=== PATIENT | female | born 1950 | race Caucasian/White ===

== ENCOUNTER 2016-09-21 21:24 | Observation (INO) | payer MEDICARE, OTHER ==
--- NOTE | 2016-09-21 21:38 | EDM.PDOC ---
ED HPI GENERAL MEDICAL PROBLEM - General Chief Complaint: Headache Stated Complaint: Headache Time Seen by Provider: 09/21/16 21:38 Source of Information: Reports: Patient, RN, RN Notes Reviewed History Limitations: Reports: No Limitations - History of Present Illness INITIAL COMMENTS - FREE TEXT/NARRATIVE: Patient presents to the ED at [facility] complaining of a headache that started earlier this AM. No known triggers. Patient states the headache is on the right side of her head. She states it is sharp and stabbing in a wave-like pattern. Patient did take an Excederin this AM without any relief. She did take an Imitrex around 8pm which did not help at all. Patient denies any focal neurological deficits. She feels moderately nauseated. No vomiting. No chest pain. No SOB. She states she did not eat her evening meal. Patient states she only get a headache maybe once a year. She does not normally taken any medications for headaches. Onset: Today Onset Date: 09/21/16 Duration: Getting Worse, Waxing/Waning Location: Reports: Head Quality: Reports: Sharp, Stabbing Severity: Moderate Improves with: Reports: None Worsens with: Reports: Movement Context: Denies: Activity, Exercise, Lifting, Sick Contact, Trauma Associated Symptoms: Reports: Nausea/Vomiting Right Headache Pain Score (Numeric/FACES): 10 - Related Data Allergies Allergy/AdvReac Type Severity Reaction Status Date / Time Sulfa (Sulfonamide Allergy Hives Verified 09/21/16 21:37 Antibiotics) Home Meds: Home Meds Acetaminophen [Tylenol Extra Strength] 1,000 mg PO Q4H PRN 02/08/15 [History] Aspirin [Halfprin] 1 tab PO DAILY 02/08/15 [History] Cholecalciferol (Vitamin D3) [Vitamin D3] 1 tab PO BID 02/08/15 [History] Fludrocortisone [Florinef] 1 tab PO DAILY 02/08/15 [History] Levothyroxine [Synthroid] 88 mcg PO DAILY 02/08/15 [History] predniSONE 1 tab PO DAILY 02/08/15 [History] Past Medical History HEENT History: Reports: Impaired Vision Gastrointestinal History: Reports: Other (See Below) Other Gastrointestinal History: + FIT Musculoskeletal History: Reports: Back Pain, Chronic Neurological History: Reports: Migraines Endocrine/Metabolic History: Reports: Hypothyroidism, Osteopenia, Other (See Below) Other Endocrine/Metabolic History: corticoadrenal insufficiency Social & Family History - Tobacco Use Smoking Status *Q: Unknown Ever Smoked Second Hand Smoke Exposure: Yes - Recreational Drug Use Recreational Drug Use: No ED ROS GENERAL - Review of Systems Review Of Systems: See Below Constitutional: Reports: Decreased Appetite. Denies: Fever, Chills, Weakness Respiratory: Denies: Shortness of Breath, Cough Cardiovascular: Denies: Chest Pain, Palpitations GI/Abdominal: Reports: Nausea. Denies: Abdominal Pain, Diarrhea, Vomiting Skin: Reports: No Symptoms Neurological: Reports: Headache. Denies: Numbness, Paresthesia, Tingling, Weakness - Physical Exam Exam: See Below Exam Limited By: No Limitations General Appearance: Alert, WD/WN, Mild Distress Eye Exam: Bilateral Eye: EOMI, Normal Inspection, PERRL Ears: Normal External Exam, Normal Canal, Normal TMs Head Exam: Atraumatic, Normocephalic Neck: Supple, Non-Tender Respiratory/Chest: No Respiratory Distress, Lungs Clear, Normal Breath Sounds Cardiovascular: Regular Rate, Rhythm GI/Abdominal: Normal Bowel Sounds, Soft, Non-Tender Neuro Exam (Abbreviated): Alert, Oriented, Normal Cognition Skin Exam: Warm, Dry, Intact, Normal Color, No Rash Course - Vital Signs Last Recorded V/S: Last Vital Signs Temp 36.6 C 09/21/16 21:30 Pulse 108 H 09/21/16 23:43 Resp 18 09/21/16 23:43 BP 113/87 09/21/16 23:43 Pulse Ox 95 09/21/16 23:43 - Orders/Labs/Meds Orders: Active Orders 24 hr Category Date Time Status Head wo Cont [CT] Stat Exams 09/21/16 23:14 Taken Sodium Chloride 0.9% [Saline Flush] Med 09/21/16 21:43 Active 10 ml FLUSH ASDIRECTED PRN Peripheral IV Insertion Adult [OM.PC] Routine Oth 09/21/16 21:43 Ordered Medication Orders Sodium Chloride (Saline Flush) 10 ml FLUSH ASDIRECTED PRN PRN Reason: Keep Vein Open Meds: Medications Generic Name Dose Route Start Last Admin Trade Name Freq PRN Reason Stop Dose Admin Sodium Chloride 10 ml 09/21/16 21:43 Saline Flush FLUSH ASDIRECTED PRN Keep Vein Open Discontinued Medications Generic Name Dose Route Start Last Admin Trade Name Jonnathan PRN Reason Stop Dose Admin Dexamethasone 10 mg 09/21/16 23:07 09/21/16 23:37 Dexamethasone IVPUSH 09/21/16 23:08 10 mg ONETIME ONE Administration Diphenhydramine HCl 50 mg 09/21/16 21:46 09/21/16 21:59 Benadryl IVPUSH 09/21/16 21:47 50 mg ONETIME ONE Administration Sodium Chloride 1,000 mls @ 999 mls/hr 09/21/16 21:49 09/21/16 21:55 Normal Saline IV 09/21/16 22:49 999 mls/hr ONETIME ONE Administration Chlorpromazine HCl 25 mg/ 51 mls @ 100 mls/hr 09/21/16 22:19 09/21/16 22:28 Sodium Chloride IV 09/21/16 22:49 100 mls/hr ONETIME ONE Administration Promethazine HCl 25 mg/ Sodium 101 mls @ 400 mls/hr 09/21/16 23:06 09/21/16 23:15 Chloride IV 09/21/16 23:21 400 mls/hr ONETIME ONE Administration Ketorolac Tromethamine 30 mg 09/21/16 21:43 09/21/16 22:00 Toradol IM 09/21/16 21:44 30 mg ONETIME ONE Administration Ondansetron HCl 4 mg 09/21/16 21:45 09/21/16 21:58 Zofran IVPUSH 09/21/16 21:46 4 mg ONETIME ONE Administration - Radiology Interpretation Free Text/Narrative:: CT Head: No acute intracranial findings See scanned report in EMR CT Results Date: 09/22/16 CT Results Time: 00:33 Departure - Departure Time of Disposition: 00:46 Disposition: Refer to Observation Condition: Good Clinical Impression: Headache, cluster, intractable, Dizziness and giddiness - Discharge Information ED Communication - ED Communication Date/Time Date: 09/21/16 Time Called: 22:59 - Discussed Case With (1) Discussed Case With (1): Outpatient Provider (Dr. Olmos, ED provider [facility]) - Conversation Summary Summary Comment: Case discussed with Dr. Olmos. Recommend trying Phenergan , Decadron, or Depacon (Depakote). May also try Reglan. - Problem List & Annotations (1) Headache, cluster, intractable SNOMED Code(s): 920631295 Code(s): G44.001 - CLUSTER HEADACHE SYNDROME, UNSPECIFIED, INTRACTABLE Status: Acute Priority: High Current Visit: Yes Onset Date: ~09/21/16 (2) Dizziness and giddiness SNOMED Code(s): 501016070 Code(s): R42 - DIZZINESS AND GIDDINESS Status: Acute Priority: Medium Current Visit: Yes Onset Date: ~09/21/16 - Problem List Review Problem List Initiated/Reviewed/Updated: Yes - My Orders Last 24 Hours: My Active Orders 09/21/16 21:43 Sodium Chloride 0.9% [Saline Flush] 10 ml FLUSH ASDIRECTED PRN Peripheral IV Insertion Adult [OM.PC] Routine 09/21/16 23:14 Head wo Cont [CT] Stat - Assessment/Plan Admission H&P: Please use this note as an admission H&P Last 24 Hours: My Active Orders 09/21/16 21:43 Sodium Chloride 0.9% [Saline Flush] 10 ml FLUSH ASDIRECTED PRN Peripheral IV Insertion Adult [OM.PC] Routine 09/21/16 23:14 Head wo Cont [CT] Stat Plan: Admit obs for overnight. IVF. Observe headache. Patient does not want to go to [place] for further testing/eval.
[2016-09-21] MEDS ORDERED: Sodium Chloride 0.9% 10 ML Syringe FLUSH PRN (21:43)
[2016-09-21] MEDS ORDERED: Ketorolac 30 MG/ML SDV IM ONE (21:43)
[2016-09-21] MEDS ORDERED: Ondansetron 4 MG/2 ML SDV IVPUSH ONE (21:45)
[2016-09-21] MEDS ORDERED: diphenhydrAMINE 50 MG/ML SDV IVPUSH ONE (21:46)
[2016-09-21] MEDS ORDERED: Sodium Chloride 0.9% 1,000 ML IV ONE (21:49)
[2016-09-21] MEDS ORDERED: Promethazine 25 MG in Sodium Chloride 0.9% 100 ML IV ONE (23:06)
[2016-09-21] MEDS ORDERED: Dexamethasone 4 MG/ML SDV IVPUSH ONE (23:07)
--- NOTE | 2016-09-22 01:06 | PCM.HP ---
H&P History of Present Illness - General Date of Service: 09/22/16 Admit Problem/Dx: Admission Diagnosis/Problem Admission Diagnosis/Problem Headache Source of Information: Patient, Family, RN, RN Notes Reviewed History Limitations: Reports: No Limitations - History of Present Illness Initial Comments - Free Text/Narative: Patient presented to the ED at [facility] complaining of a headache that started earlier this AM. No known triggers. Patient states the headache is on the right side of her head. She states it is sharp and stabbing in a wave-like pattern. Patient did take an Excederin this AM without any relief. She did take an Imitrex around 8pm which did not help at all. Patient denies any focal neurological deficits. She feels moderately nauseated. No vomiting. No chest pain. No SOB. She states she did not eat her evening meal. CT scan of head is negative for any acute pathology. Patient states she only get a headache maybe once a year. She does not normally taken any medications for headaches. During ER stay, patient did become very giddy, confused and restless, probably side effect of the medications she was given in the ED. Right Headache Pain Score (Numeric/FACES): 10 - Related Data Allergies/Adverse Reactions: Allergies Allergy/AdvReac Type Severity Reaction Status Date / Time Sulfa (Sulfonamide Allergy Hives Verified 09/21/16 21:37 Antibiotics) Home Medications: Home Meds Acetaminophen [Tylenol Extra Strength] 1,000 mg PO Q4H PRN 02/08/15 [History] Aspirin [Halfprin] 1 tab PO DAILY 02/08/15 [History] Cholecalciferol (Vitamin D3) [Vitamin D3] 1 tab PO BID 02/08/15 [History] Fludrocortisone [Florinef] 1 tab PO DAILY 02/08/15 [History] Levothyroxine [Synthroid] 88 mcg PO DAILY 02/08/15 [History] predniSONE 1 tab PO DAILY 02/08/15 [History] Past Medical History HEENT History: Reports: Impaired Vision Gastrointestinal History: Reports: Other (See Below) Other Gastrointestinal History: + FIT Musculoskeletal History: Reports: Back Pain, Chronic Neurological History: Reports: Migraines Endocrine/Metabolic History: Reports: Hypothyroidism, Osteopenia, Other (See Below) Other Endocrine/Metabolic History: corticoadrenal insufficiency Social & Family History - Family History Family Medical History: Noncontributory - Tobacco Use Smoking Status *Q: Never Smoker Used Tobacco, but Quit: No Second Hand Smoke Exposure: Yes - Tobacco Core Measures Tobacco Use/Smoking Within Last 30 Days: No Smokeless Tobacco Use in Last 30 Days: No - Recreational Drug Use Recreational Drug Use: No H&P Review of Systems - Review of Systems: Review Of Systems: See Below General: Reports: Weakness. Denies: Fever, Chills Pulmonary: Denies: Shortness of Breath, Cough Cardiovascular: Denies: Chest Pain, Palpitations Gastrointestinal: Reports: Nausea. Denies: Abdominal Pain, Diarrhea, Vomiting Skin: Reports: No Symptoms Neurological: Reports: Confusion, Dizziness, Headache, Trouble Speaking. Denies : Numbness, Paresthesia, Tingling Exam - Exam Exam: See Below - Vital Signs Vital Signs: Last Vital Signs Temp 36.6 C 09/21/16 21:30 Pulse 108 H 09/21/16 23:43 Resp 18 09/21/16 23:43 BP 113/87 09/21/16 23:43 Pulse Ox 95 09/21/16 23:43 Weight: 98.883 kg - Exam General: Lethargic HEENT: Conjunctiva Clear, PERRLA Lungs: Clear to Auscultation, Normal Respiratory Effort Cardiovascular: Regular Rhythm GI/Abdominal Exam: Normal Bowel Sounds, Soft, Non-Tender Peripheral Pulses: 2+: Radial (L), Radial (R) Skin: Warm, Dry, Intact Neuro Extensive - Mental Status: Disorientation to Place, Disorientation to Time , Inattentive, Opens Eyes to Commands, Slow Response to Commands *Q Meaningful Use (ADM) - VTE *Q VTE Criteria *Q: No indication for VTE prophylaxis - Early ambulation - Stroke *Q Stroke Criteria *Q: - AMI *Q AMI Criteria *Q: - Problem List (1) Headache, cluster, intractable SNOMED Code(s): 572471380 ICD Code: G44.001 - CLUSTER HEADACHE SYNDROME, UNSPECIFIED, INTRACTABLE Status: Acute Priority: High Current Visit: Yes Onset Date: ~09/21/16 (2) Dizziness and giddiness SNOMED Code(s): 092722566 ICD Code: R42 - DIZZINESS AND GIDDINESS Status: Acute Priority: Medium Current Visit: Yes Onset Date: ~09/21/16 Problem List Initiated/Reviewed/Updated: Yes Orders Last 24hrs: Medication Orders Sodium Chloride (Saline Flush) 10 ml FLUSH ASDIRECTED PRN PRN Reason: Keep Vein Open Assessment/Plan Comment:: 1. Admit observation 2. IVF for hydration 3. Observe headaches 4. Neuro checks Q4H 5. Regular diet as tolerated 6. Continue home medications 7. Code 1 8. Patient does not want to be transferred to a higher level of care if needed 9. DVT prophylaxis - early ambulation
[2016-09-22] MEDS ORDERED: Acetaminophen 500 MG Tab PO PRN (01:15)
[2016-09-22] MEDS ORDERED: Sodium Chloride 0.9% 1,000 ML IV SCH (01:30)
[2016-09-22] MEDS ORDERED: Morphine 2 MG/ML Syringe IV ONE (05:01)
[2016-09-22 07:14] LABS: CHLORIDE,CL 105 mmol/L (98-107); SODIUM,NA 138 mmol/L (136-145)
[2016-09-22] MEDS ORDERED: Fludrocortisone 0.1 MG Tab PO SCH (08:00)
[2016-09-22] MEDS ORDERED: predniSONE 5 MG Tab PO SCH (08:00)
[2016-09-22] MEDS ORDERED: Non-Formulary Medication 1 Each (Cholecalciferol (Vitamin D3) [Vitamin D3] 1 TAB) PO SCH (08:00)
[2016-09-22] MEDS ORDERED: Levothyroxine 88 MCG Tab PO SCH (08:00)
[2016-09-22] MEDS ORDERED: Aspirin 81 MG Tab.EC PO SCH (08:00)
[2016-09-22] MEDS ORDERED: Cholecalciferol (Vitamin D3) 1,000 Unit Tab PO SCH (10:22)
[2016-09-22] MEDS ORDERED: Ketorolac 15 MG/ML SDV IVPUSH ONE (10:45)
[2016-09-22] MEDS ORDERED: Ondansetron 4 MG/2 ML SDV IVPUSH ONE (10:46)
[2016-09-22 14:05] VITALS: BP 120/51
--- NOTE | 2016-09-22 14:14 | PCM.DCSUM1 ---
Discharge Summary - Hospital Course HPI Initial Comments: Patient presented to the ED at [facility] complaining of a headache that started yesterday morning. No known triggers. Patient states the headache is on the right side of her head. She states it is sharp and stabbing in a wave-like pattern. Patient did take an Excederin yesterday without any relief. She did take an Imitrex around 8pm last night which did not help at all. Patient denies any focal neurological deficits. She feels moderately nauseated. No vomiting. No chest pain. No SOB. She states she did not eat her evening meal. CT scan of head is negative for any acute pathology. Patient states she only get a headache maybe once a year. She does not normally taken any medications for headaches. During ER stay, patient did become very giddy, confused and restless, probably side effect of the medications she was given in the ED. - Discharge Data Discharge Date: 09/22/16 Discharge Disposition: Home, Self-Care 01 Condition: Good - Discharge Diagnosis/Problem(s) (1) Headache, cluster, intractable SNOMED Code(s): 315939466 ICD Code: G44.001 - CLUSTER HEADACHE SYNDROME, UNSPECIFIED, INTRACTABLE Status: Acute Priority: High Current Visit: Yes Onset Date: ~09/21/16 (2) Dizziness and giddiness SNOMED Code(s): 816328695 ICD Code: R42 - DIZZINESS AND GIDDINESS Status: Acute Priority: Medium Current Visit: Yes Onset Date: ~09/21/16 - Patient Summary/Data Operative Procedure(s) Performed: None Labs Pending at D/C: None Hospital Course: Patient did well during her stay. Her headache had resolved earlier this AM. She did sleep well overnight and feels good today. She had been tolerating her diet. Urinating ok. No issues with BM's. Pain has stayed well controlled. Afebrile. Patient remained hemodynamically stable. - Patient Instructions Diet: Heart Healthy Diet Activity: As Tolerated, Rest and Relax Today Driving: Do Not Drive Showering/Bathing: May Shower Notify Provider of: Fever, Increased Pain, Nausea and/or Vomiting - Discharge Plan Home Medications: Home Meds Acetaminophen [Tylenol Extra Strength] 1,000 mg PO Q4H PRN 02/08/15 [History] Aspirin [Halfprin] 1 tab PO DAILY 02/08/15 [History] Cholecalciferol (Vitamin D3) [Vitamin D3] 1 tab PO BID 02/08/15 [History] Fludrocortisone [Florinef] 1 tab PO DAILY 02/08/15 [History] Levothyroxine [Synthroid] 88 mcg PO DAILY 02/08/15 [History] predniSONE 1 tab PO DAILY 02/08/15 [History] Patient Handouts: Cluster Headache Referrals: Mariel May PA-C [Primary Care Provider] - - Discharge Summary/Plan Comment DC Time >30 min.: Yes - General Info Date of Service: 09/22/16 Admission Dx/Problem (Free Text: Admission Diagnosis/Problem Admission Diagnosis/Problem Headache Functional Status: Reports: Pain Controlled, Tolerating Diet, Ambulating, Urinating - Review of Systems General: Denies: Fever, Weakness, Fatigue Pulmonary: Denies: Shortness of Breath, Sputum Cardiovascular: Denies: Chest Pain, Palpitations Gastrointestinal: Denies: Abdominal Pain, Nausea, Vomiting Skin: Reports: No Symptoms Neurological: Denies: Dizziness, Headache, Numbness, Paresthesia, Tingling - Patient Data Vitals - Most Recent: Last Vital Signs Temp 36.6 C 09/22/16 14:00 Pulse 75 09/22/16 14:00 Resp 16 09/22/16 14:00 BP 120/51 L 09/22/16 14:00 Pulse Ox 93 L 09/22/16 14:00 Weight - Most Recent: 98.883 kg I&O - Last 24 hours: Intake & Output 09/21/16 09/22/16 09/22/16 22:59 06:59 14:59 Intake Total 240 Output Total 400 300 Balance -400 -60 Lab Results - Last 24 hrs: Laboratory Results - last 24 hr 09/22/16 09/22/16 Range/Units 06:11 06:11 WBC 5.6 (4.0-10.0) x10^3/uL RBC 4.75 (4.00-5.50) x10^6/uL Hgb 14.3 (12.0-16.0) g/dL Hct 42.5 (33.0-47.0) % MCV 89.5 (78.0-93.0) fL MCH 30.1 (26.0-32.0) pg MCHC 33.6 (32.0-36.0) g/dL RDW Coeff of Olive 13.5 (10.0-15.0) % Plt Count 171 (130-400) x10^3/uL Neut % (Auto) 88.3 H (50.0-80.0) % Lymph % (Auto) 10.6 L (25.0-50.0) % Sequoyah % (Auto) 0.9 L (2.0-11.0) % Eos % (Auto) 0.0 (0.0-4.0) % Baso % (Auto) 0.2 (0.2-1.2) % ESR 16 (0-21) mm/hr Sodium 138 (136-145) mmol/L Potassium 4.0 (3.5-5.1) mmol/L Chloride 105 (98-107) mmol/L Carbon Dioxide 26 (21-32) mmol/L BUN 11 (7-18) mg/dL Creatinine 0.9 (0.55-1.02) mg/dL Est Cr Clr Drug Dosing 62.03 mL/min Estimated GFR (MDRD) > 60 Glucose 189 H (74-106) mg/dL Calcium 8.9 (8.5-10.1) mg/dL C-Reactive Protein 0.9 (<=0.9) mg/dL TSH, Ultra Sensitive 2.584 (0.358-3.74) uIU/mL Med Orders - Current: Current Medications Acetaminophen (Tylenol Extra Strength) 1,000 mg PO Q4H PRN PRN Reason: Pain Last Admin: 09/22/16 07:55 Dose: 1,000 mg Aspirin (Halfprin) 81 mg PO DAILY [facility] Last Admin: 09/22/16 07:55 Dose: 81 mg Cholecalciferol (Vitamin D3) 1,000 units PO BID [facility] Fludrocortisone Acetate (Florinef) 0.1 mg PO DAILY [facility] Last Admin: 09/22/16 07:55 Dose: 0.1 mg Sodium Chloride (Normal Saline) 1,000 mls @ 125 mls/hr IV ASDIRECTED [facility] Levothyroxine Sodium (Synthroid) 88 mcg PO DAILY [facility] Last Admin: 09/22/16 07:55 Dose: 88 mcg Prednisone (Prednisone) 5 mg PO DAILY [facility] Last Admin: 09/22/16 07:54 Dose: 5 mg Sodium Chloride (Saline Flush) 10 ml FLUSH ASDIRECTED PRN PRN Reason: Keep Vein Open Last Admin: 09/22/16 07:57 Dose: 10 ml Discontinued Medications Dexamethasone (Dexamethasone) 10 mg IVPUSH ONETIME ONE Stop: 09/21/16 23:08 Last Admin: 09/21/16 23:37 Dose: 10 mg Diphenhydramine HCl (Benadryl) 50 mg IVPUSH ONETIME ONE Stop: 09/21/16 21:47 Last Admin: 09/21/16 21:59 Dose: 50 mg Sodium Chloride (Normal Saline) 1,000 mls @ 999 mls/hr IV ONETIME ONE Stop: 09/21/16 22:49 Last Admin: 09/21/16 21:55 Dose: 999 mls/hr Chlorpromazine HCl 25 mg/ (Sodium Chloride) 51 mls @ 100 mls/hr IV ONETIME ONE Stop: 09/21/16 22:49 Last Admin: 09/21/16 22:28 Dose: 100 mls/hr Promethazine HCl 25 mg/ Sodium (Chloride) 101 mls @ 400 mls/hr IV ONETIME ONE Stop: 09/21/16 23:21 Last Admin: 09/21/16 23:15 Dose: 400 mls/hr Ketorolac Tromethamine (Toradol) 30 mg IM ONETIME ONE Stop: 09/21/16 21:44 Last Admin: 09/21/16 22:00 Dose: 30 mg Ketorolac Tromethamine (Toradol) 15 mg IVPUSH ONETIME ONE Stop: 09/22/16 10:46 Last Admin: 09/22/16 11:31 Dose: 15 mg Morphine Sulfate (Morphine) 2 mg IV ONETIME ONE Stop: 09/22/16 05:02 Last Admin: 09/22/16 05:10 Dose: 2 mg Non-Formulary Medication (Cholecalciferol (Vitamin D3) [Vitamin D3]) 1 tab PO BID [facility] Last Admin: 09/22/16 08:01 Dose: 1 tab Ondansetron HCl (Zofran) 4 mg IVPUSH ONETIME ONE Stop: 09/21/16 21:46 Last Admin: 09/21/16 21:58 Dose: 4 mg Ondansetron HCl (Zofran) 4 mg IVPUSH ONETIME ONE Stop: 09/22/16 10:47 Last Admin: 09/22/16 11:30 Dose: 4 mg - Exam General: Reports: Alert, Oriented HEENT: Reports: Pupils Equal, Pupils Reactive, EOMI Neck: Reports: Supple Lungs: Reports: Clear to Auscultation, Normal Respiratory Effort Cardiovascular: Reports: Regular Rate, Regular Rhythm GI/Abdominal Exam: Normal Bowel Sounds, Soft, Non-Tender Skin: Reports: Warm, Dry Neurological: Reports: No New Focal Deficit *Q Meaningful Use (DIS) - VTE *Q VTE Criteria *Q: No risk for VTE - Patient is ambulating - Stroke *Q Stroke Criteria *Q: - AMI *Q AMI Criteria *Q:
[2016-09-22] MEDS ORDERED: SUMAtriptan 6 MG/0.5 ML SDV SUBCUT ONE (14:22)
== END 2016-09-22 14:47 | disposition home or self-care (01) ==
LOC: VM.ED 21:24 → VM.MS 09-22 00:49
PROVIDERS: ADMIT Nurse Practitioner Family; ATTEND Nurse Practitioner Family
DX: G44.001 Cluster headache syndrome, unspecified, intractable (principal); R42 Dizziness and giddiness; E03.9 Hypothyroidism, unspecified; Z79.82 Long term (current) use of aspirin; Z79.899 Other long term (current) drug therapy; Z88.2 Allergy status to sulfonamides
CPT/HCPCS: 36415; 70450; 80048; 84443; 85025; 85652; 86140; 96361; 96365; 96372; 96375; 99284; A9270; J1100; J1200; J1885; J2270; J2405; J2550; J3030; J3230; J7030; J7050; 96376; 99236; G0378

== ENCOUNTER 2016-11-26 11:05 | Emergency (ER) | payer MEDICARE, OTHER ==
[2016-11-26] MEDS ORDERED: Sodium Chloride 0.9% 1,000 ML IV ONE ×4 (11:22→14:23)
[2016-11-26] MEDS ORDERED: Ondansetron 4 MG/2 ML SDV IVPUSH ONE (11:22)
[2016-11-26] MEDS ORDERED: Sodium Chloride 0.9% 10 ML Syringe FLUSH PRN ×2 (11:24→11:30)
[2016-11-26] MEDS ORDERED: Hydrocortisone Sodium Succinate 100 MG/2 ML SDV IVPUSH ONE ×2 (11:28→14:26)
[2016-11-26] MEDS ORDERED: Albuterol/Ipratropium 3.0-0.5 MG/3 ML Neb Soln NEB ONE (11:28)
[2016-11-26] MEDS ORDERED: Piperacillin/Tazobactam 4.5 GM in Sodium Chloride 0.9% 100 ML IV ONE (11:29)
[2016-11-26] MEDS ORDERED: Albuterol/Ipratropium 3.0-0.5 MG/3 ML Neb Soln ONE (11:39)
[2016-11-26 12:27] LABS: CHLORIDE,CL 104 mmol/L (98-107); SODIUM,NA 139 mmol/L (136-145)
[2016-11-26] MEDS ORDERED: Ciprofloxacin in D5W 400 MG in Premix Bag 1 BAG IV ONE ×2 (12:31)
[2016-11-26] MEDS ORDERED: Acetaminophen 500 MG Tab PO ONE (12:32)
--- NOTE | 2016-11-26 13:24 | EDM.PDOC ---
ED HPI GENERAL MEDICAL PROBLEM - General Chief Complaint: Fever Stated Complaint: decreased loc, weakness, n/v/d Time Seen by Provider: 11/26/16 12:26 Source of Information: Reports: Family History Limitations: Reports: No Limitations - History of Present Illness INITIAL COMMENTS - FREE TEXT/NARRATIVE: Family states that the pt. has been experiencing nausea/vomiting and diarrhea since yesterday. Family states that she has been experiencing increased weakness , fatigue, and confusion. Family transported her to the ER via private vehicle today with severe weakness and minimal responsiveness. She was incontinent of stool and urine. Pt., again, is quite confused and is unable to relate how many episodes of diarrhea and vomiting she has experienced. She states she is not experiencing any chest pain, but is mildly dyspneic. She has had a mild cough as well. She states that her urine is very dark and concentrated. Pt. works here at [employer] and has a known history of Jl's disease, and takes prednisone and fludrocortisone. Onset Date: 11/25/16 Duration: Day(s): (symptoms started gradually during day yesterday) Location: Reports: Generalized Severity: Severe Associated Symptoms: Reports: Confusion, Cough, Malaise, Nausea/Vomiting, Weakness - Related Data Allergies Allergy/AdvReac Type Severity Reaction Status Date / Time Sulfa (Sulfonamide Allergy Hives Verified 11/26/16 11:49 Antibiotics) Home Meds: Home Meds Acetaminophen [Tylenol Extra Strength] 1,000 mg PO Q4H PRN 02/08/15 [History] Aspirin [Halfprin] 1 tab PO DAILY 02/08/15 [History] Cholecalciferol (Vitamin D3) [Vitamin D3] 1 tab PO BID 02/08/15 [History] Fludrocortisone [Florinef] 1 tab PO DAILY 02/08/15 [History] Levothyroxine [Synthroid] 88 mcg PO DAILY 02/08/15 [History] predniSONE 1 tab PO DAILY 02/08/15 [History] Past Medical History HEENT History: Reports: Impaired Vision Gastrointestinal History: Reports: Other (See Below) Other Gastrointestinal History: + FIT Musculoskeletal History: Reports: Back Pain, Chronic Neurological History: Reports: Migraines Endocrine/Metabolic History: Reports: Hypothyroidism, Osteopenia, Other (See Below) Other Endocrine/Metabolic History: corticoadrenal insufficiency Social & Family History - Family History Family Medical History: Noncontributory - Tobacco Use Smoking Status *Q: Never Smoker Used Tobacco, but Quit: No Second Hand Smoke Exposure: Yes - Recreational Drug Use Recreational Drug Use: No ED ROS GENERAL - Review of Systems Review Of Systems: See Below Constitutional: Reports: Fever, Chills, Malaise, Weakness, Fatigue, Decreased Appetite HEENT: Reports: No Symptoms Respiratory: Reports: Shortness of Breath, Cough Cardiovascular: Reports: No Symptoms Endocrine: Reports: Fatigue (History of [place] disease-on fludrocortisone and prednisone), Other GI/Abdominal: Reports: Diarrhea, Nausea, Vomiting : Reports: Incontinence, Pain Musculoskeletal: Reports: No Symptoms Skin: Reports: No Symptoms Neurological: Reports: Confusion, Difficulty Walking, Weakness Psychiatric: Reports: No Symptoms Immunologic: Reports: No Symptoms ED EXAM, SEPSIS - Physical Exam Exam: See Below Exam Limited By: Altered Mental Status General Appearance: Lethargic Eye Exam: Bilateral Eye: EOMI, Normal Fundi, Normal Inspection, PERRL Ears: Normal External Exam, Normal Canal, Hearing Grossly Normal Nose: Normal Inspection, Normal Mucosa Throat/Mouth: Normal Inspection, Normal Teeth, No Airway Compromise, Other ( oral mucosa very dry) Head: Atraumatic, Normocephalic Neck: Normal Inspection, Supple, Non-Tender, Full Range of Motion Respiratory/Chest: Crackles, Wheezing, Prolonged Expiration Cardiovascular: Normal Peripheral Pulses, No Edema, Tachycardia GI/Abdominal Exam: Soft, Non-Tender, No Organomegaly, No Distention, No Abnormal Bruit, No Mass Back: Normal Inspection, Full Range of Motion Extremities: Normal Inspection, Normal Range of Motion, Non-Tender, Pallor Neurological: Confused, Slow to Respond Psychiatric: Normal Affect, Flat Affect Skin: Cool (no petechiae), Pallor EKG INTERPRETATION EKG Date: 11/26/16 Rhythm: NSR [place]: Normal P-Wave: Present QRS: Normal ST-T: Normal QT: Normal Comparison: NA - No Prior EKG Course - Vital Signs Last Recorded V/S: Last Vital Signs Temp 37.9 C 11/26/16 13:03 Pulse 100 11/26/16 14:25 Resp 16 11/26/16 14:18 BP 94/52 L 11/26/16 14:25 Pulse Ox 94 L 11/26/16 14:18 - Orders/Labs/Meds Orders: Active Orders 24 hr Category Date Time Status Accu Check [Blood Glucose Check, Bedside] [RC] ONETIME Care 11/26/16 11:27 Active EKG Documentation Completion [RC] STAT Care 11/26/16 11:24 Ordered EKG Documentation Completion [RC] STAT Care 11/26/16 14:23 Ordered Velasquez Catheter Insertion [Insert Urinary Catheter] [OM. Care 11/26/16 12:05 Ordered PC] Q24H RT Aerosol Therapy [RC] ASDIRECTED Care 11/26/16 11:37 Active Urinary Catheter Assessment [RC] ASDIRECTED Care 11/26/16 13:10 Active Chest 1V Frontal [CR] Stat Exams 11/26/16 11:24 Taken Head wo Cont [CT] Stat Exams 11/26/16 11:24 Ordered CULTURE BLOOD [BC] Stat Lab 11/26/16 11:26 Received CULTURE BLOOD [BC] Stat Lab 11/26/16 11:39 Results CULTURE URINE [RM] Stat Lab 11/26/16 13:14 Uncollected STOOL CULTURE [MREF] Stat Lab 11/26/16 12:39 Uncollected Sodium Chloride 0.9% [Normal Saline] 1,000 ml Med 11/26/16 14:23 Active IV ONETIME Sodium Chloride 0.9% [Saline Flush] Med 11/26/16 11:24 Active 10 ml FLUSH ASDIRECTED PRN Sodium Chloride 0.9% [Saline Flush] Med 11/26/16 11:30 Active 10 ml FLUSH ASDIRECTED PRN Vancomycin 1,500 mg Med 11/26/16 13:43 Ordered Sodium Chloride 0.9% [Normal Saline] 250 ml IV ONETIME Blood Culture x2 Reflex Set [OM.PC] Stat Oth 11/26/16 11:26 Ordered Peripheral IV Insertion Adult [OM.PC] Routine Oth 11/26/16 11:26 Ordered Peripheral IV Insertion Adult [OM.PC] Routine Oth 11/26/16 11:30 Ordered Medication Orders Vancomycin HCl 1,500 mg/ (Sodium Chloride) 250 mls @ 167 mls/hr IV ONETIME ONE Stop: 11/26/16 15:12 Last Admin: 11/26/16 14:15 Dose: 167 mls/hr Sodium Chloride (Normal Saline) 1,000 mls @ 999 mls/hr IV ONETIME ONE Stop: 11/26/16 15:23 Last Admin: 11/26/16 14:24 Dose: 999 mls/hr Sodium Chloride (Saline Flush) 10 ml FLUSH ASDIRECTED PRN PRN Reason: Keep Vein Open Sodium Chloride (Saline Flush) 10 ml FLUSH ASDIRECTED PRN PRN Reason: Keep Vein Open Labs: Laboratory Tests 11/26/16 11/26/16 11/26/16 Range/Units 11:24 11:24 11:24 WBC 8.8 (4.0-10.0) x10^3/uL RBC 5.43 (4.00-5.50) x10^6/uL Hgb 16.4 H D (12.0-16.0) g/dL Hct 49.7 H (33.0-47.0) % MCV 91.5 (78.0-93.0) fL MCH 30.2 (26.0-32.0) pg MCHC 33.0 (32.0-36.0) g/dL RDW Coeff of [place] 15.1 H (10.0-15.0) % Plt Count 155 (130-400) x10^3/uL Neut % (Auto) 56.2 (50.0-80.0) % Lymph % (Auto) 38.7 (25.0-50.0) % [place] % (Auto) 4.8 (2.0-11.0) % Eos % (Auto) 0.1 (0.0-4.0) % Baso % (Auto) 0.2 (0.2-1.2) % PT 12.3 H (9.8-11.8) SEC INR 1.1 L (2.0-3.5) Sodium 139 (136-145) mmol/L Potassium 3.4 L (3.5-5.1) mmol/L Chloride 104 (98-107) mmol/L Carbon Dioxide 22 (21-32) mmol/L BUN 29 H (7-18) mg/dL Creatinine 2.8 H D (0.55-1.02) mg/dL Est Cr Clr Drug Dosing TNP Estimated GFR (MDRD) 17 Glucose 154 H (74-106) mg/dL POC Glucose (74-106) mg/dL Lactic Acid (0.4-2.0) mmol/L Calcium 9.0 (8.5-10.1) mg/dL Corrected Calcium 9.40 (8.5-10.1) mg/dL Phosphorus 2.7 (2.6-4.7) mg/dL Magnesium 1.5 L (1.8-2.4) mg/dL Total Bilirubin 0.7 (0.2-1.0) mg/dL AST 61 H (15-37) U/L ALT 42 (14-59) U/L Alkaline Phosphatase 63 (46-116) U/L Creatine Kinase 198 H* (26-192) U/L Creatine Kinase Index 0.4 (0.0-4.0) % CK-MB (CK-2) 0.8 (0.0-3.6) ng/mL Troponin I 1.081 H* (<=0.056) ng/mL C-Reactive Protein 17.5 H (<=0.9) mg/dL Total Protein 7.2 (6.4-8.2) g/dL Albumin 3.5 (3.4-5.0) g/dL Globulin 3.7 Albumin/Globulin Ratio 0.95 TSH, Ultra Sensitive 6.908 H (0.358-3.74) uIU/mL Urine Color (YELLOW) Urine Appearance (CLEAR) Urine pH (5.0-8.0) Ur Specific [place] Urine Protein (NEGATIVE) mg/dL Urine Glucose (UA) (NEGATIVE) mg/dL Urine Ketones (NEGATIVE) mg/dL Urine Occult Blood (NEGATIVE) Urine Nitrite (NEGATIVE) Urine Bilirubin (NEGATIVE) Urine Urobilinogen (0.2) EU/dL Ur Leukocyte Esterase (NEGATIVE) Urine RBC (NOT SEEN) /HPF Urine WBC (NOT SEEN) /HPF Ur Squamous Epith Cells (NEGATIVE) /HPF Ur Renal Epithelial Cell (NEGATIVE) /HPF Urine Bacteria (NEGATIVE) /HPF Granular Casts (NEGATIVE) /HPF WBC Casts (NEGATIVE) /HPF Urine Mucus (NEGATIVE) /LPF 11/26/16 11/26/16 11/26/16 Range/Units 11:24 11:26 12:10 WBC (4.0-10.0) x10^3/uL RBC (4.00-5.50) x10^6/uL Hgb (12.0-16.0) g/dL Hct (33.0-47.0) % MCV (78.0-93.0) fL MCH (26.0-32.0) pg MCHC (32.0-36.0) g/dL RDW Coeff of [place] (10.0-15.0) % Plt Count (130-400) x10^3/uL Neut % (Auto) (50.0-80.0) % Lymph % (Auto) (25.0-50.0) % [place] % (Auto) (2.0-11.0) % Eos % (Auto) (0.0-4.0) % Baso % (Auto) (0.2-1.2) % PT (9.8-11.8) SEC INR (2.0-3.5) Sodium (136-145) mmol/L Potassium (3.5-5.1) mmol/L Chloride (98-107) mmol/L Carbon Dioxide (21-32) mmol/L BUN (7-18) mg/dL Creatinine (0.55-1.02) mg/dL Est Cr Clr Drug Dosing Estimated GFR (MDRD) Glucose (74-106) mg/dL POC Glucose 154 H (74-106) mg/dL Lactic Acid 3.6 H (0.4-2.0) mmol/L Calcium (8.5-10.1) mg/dL Corrected Calcium (8.5-10.1) mg/dL Phosphorus (2.6-4.7) mg/dL Magnesium (1.8-2.4) mg/dL Total Bilirubin (0.2-1.0) mg/dL AST (15-37) U/L ALT (14-59) U/L Alkaline Phosphatase (46-116) U/L Creatine Kinase (26-192) U/L Creatine Kinase Index (0.0-4.0) % CK-MB (CK-2) (0.0-3.6) ng/mL Troponin I (<=0.056) ng/mL C-Reactive Protein (<=0.9) mg/dL Total Protein (6.4-8.2) g/dL Albumin (3.4-5.0) g/dL Globulin Albumin/Globulin Ratio TSH, Ultra Sensitive (0.358-3.74) uIU/mL Urine Color Dark yellow H (YELLOW) Urine Appearance Cloudy H (CLEAR) Urine pH 5.5 (5.0-8.0) Ur Specific [place] 1.025 Urine Protein 100 H (NEGATIVE) mg/dL Urine Glucose (UA) Negative (NEGATIVE) mg/dL Urine Ketones Trace H (NEGATIVE) mg/dL Urine Occult Blood Large H (NEGATIVE) Urine Nitrite Positive H (NEGATIVE) Urine Bilirubin Small H (NEGATIVE) Urine Urobilinogen 0.2 (0.2) EU/dL Ur Leukocyte Esterase Small H (NEGATIVE) Urine RBC 10-20 H (NOT SEEN) /HPF Urine WBC 20-30 H (NOT SEEN) /HPF Ur Squamous Epith Cells Rare (NEGATIVE) /HPF Ur Renal Epithelial Cell Moderate H (NEGATIVE) /HPF Urine Bacteria Moderate H (NEGATIVE) /HPF Granular Casts Rare H (NEGATIVE) /HPF WBC Casts Few H (NEGATIVE) /HPF Urine Mucus Rare H (NEGATIVE) /LPF Meds: Medications Generic Name Dose Route Start Last Admin Trade Name Freq PRN Reason Stop Dose Admin Vancomycin HCl 1,500 mg/ 250 mls @ 167 mls/hr 11/26/16 13:43 11/26/16 14:15 Sodium Chloride IV 11/26/16 15:12 167 mls/hr ONETIME ONE Administration Sodium Chloride 1,000 mls @ 999 mls/hr 11/26/16 14:23 11/26/16 14:24 Normal Saline IV 11/26/16 15:23 999 mls/hr ONETIME ONE Administration Sodium Chloride 10 ml 11/26/16 11:24 Saline Flush FLUSH ASDIRECTED PRN Keep Vein Open Sodium Chloride 10 ml 11/26/16 11:30 Saline Flush FLUSH ASDIRECTED PRN Keep Vein Open Discontinued Medications Generic Name Dose Route Start Last Admin Trade Name Freq PRN Reason Stop Dose Admin Acetaminophen 1,000 mg 11/26/16 12:32 11/26/16 12:38 Tylenol Extra Strength PO 11/26/16 12:33 1,000 mg ONETIME ONE Administration Albuterol/Ipratropium 3 ml 11/26/16 11:28 11/26/16 11:37 Duoneb 3.0-0.5 Mg/3 Ml NEB 11/26/16 11:29 3 ml ONETIME ONE Administration Albuterol/Ipratropium Confirm 11/26/16 11:39 11/26/16 12:14 Duoneb 3.0-0.5 Mg/3 Ml Administered 11/26/16 11:40 Not Given Dose 3 ml .ROUTE .STK-MED ONE Hydrocortisone Sodium Succinate 100 mg 11/26/16 11:28 11/26/16 11:35 Solu-Cortef IVPUSH 11/26/16 11:29 100 mg ONETIME ONE Administration Hydrocortisone Sodium Succinate 100 mg 11/26/16 14:26 Solu-Cortef IVPUSH 11/26/16 14:27 ONETIME ONE Sodium Chloride 1,000 mls @ 1,000 mls/hr 11/26/16 11:22 11/26/16 11:33 Normal Saline IV 11/26/16 12:21 1,000 mls/hr .BOLUS ONE Administration Piperacillin Sod/Tazobactam 100 mls @ 200 mls/hr 11/26/16 11:29 11/26/16 11: 35 Sod 4.5 gm/ Sodium Chloride IV 11/26/16 11:58 200 mls/hr ONETIME ONE Administration Sodium Chloride 1,000 mls @ 1,000 mls/hr 11/26/16 11:31 11/26/16 11:36 Normal Saline IV 11/26/16 12:30 1,000 mls/hr .BOLUS ONE Administration Ciprofloxacin/Dextrose 400 mg/ 200 mls @ 200 mls/hr 11/26/16 12:31 11/26/16 12:37 Premix IV 11/26/16 13:30 200 mls/hr ONETIME ONE Administration Sodium Chloride 1,000 mls @ 999 mls/hr 11/26/16 12:30 11/26/16 12:35 Normal Saline IV 11/26/16 13:30 999 mls/hr ONETIME ONE Administration Ondansetron HCl 4 mg 11/26/16 11:22 11/26/16 11:30 Zofran IVPUSH 11/26/16 11:23 4 mg ONETIME ONE Administration - Radiology Interpretation Free Text/Narrative:: CT brain without contrast is negative portable chest x-ray does not reveal any acute pathology Departure - Departure Time of Disposition: 14:28 Disposition: DC/Tfer to Acute Hospital 02 Condition: Critical Clinical Impression: Systemic infection, UTI (urinary tract infection) - Discharge Information Referrals: Mariel May PA-C [Primary Care Provider] - Forms: ED Department Discharge, Interfacility Transfer [facility] Critical Care Note - Critical Care Note Comments: Pt. initially quite confused, minimally responsive with profound weakness. Was maintaining airway and oxygenation and did not require rapid sequence intubation immediately. She became more alert as she was fluid resuscitated adequately. Pt. was fluid resuscitated with normal saline. Approx. 3.5 liters of fluid infused in er. Pt. was given 100mg of hydrocortisone IV intially. Her BP increased to normal range and then dropped again to 80s-90s systolic. Pt. was subsequently given another 100mg of IV hydrocortisone. Pt. was intially given 4.5mg Zosyn IV and 400mg Cipro IV. She was also given 1.5 mg Vancomycin IV. Urine output remained very low-less than 100ml urine output. Velasquez catheter was placed to closely monitor urine output. She was experiencing some crackles and wheezing, particularly in the R mid lung field. No obvious infiltrate noted. Pt. mental status inproved during her stay in ER. Was much more alert, able to answer more questions. Pt. was given Protonix 80mg IV for stress ulcer prophylaxis. - My Orders Last 24 Hours: My Active Orders 11/26/16 11:24 EKG Documentation Completion [RC] STAT Chest 1V Frontal [CR] Stat Head wo Cont [CT] Stat Sodium Chloride 0.9% [Saline Flush] 10 ml FLUSH ASDIRECTED PRN 11/26/16 11:26 CULTURE BLOOD [BC] Stat Blood Culture x2 Reflex Set [OM.PC] Stat Peripheral IV Insertion Adult [OM.PC] Routine 11/26/16 11:27 Accu Check [Blood Glucose Check, Bedside] [RC] ONETIME 11/26/16 11:30 Sodium Chloride 0.9% [Saline Flush] 10 ml FLUSH ASDIRECTED PRN Peripheral IV Insertion Adult [OM.PC] Routine 11/26/16 11:37 RT Aerosol Therapy [RC] ASDIRECTED 11/26/16 11:39 CULTURE BLOOD [BC] Stat 11/26/16 12:05 Velasquez Catheter Insertion [Insert Urinary Catheter] [OM.PC] Q24H 11/26/16 12:39 STOOL CULTURE [MREF] Stat 11/26/16 13:10 Urinary Catheter Assessment [RC] ASDIRECTED 11/26/16 13:14 CULTURE URINE [RM] Stat 11/26/16 13:43 Vancomycin 1,500 mg Sodium Chloride 0.9% [Normal Saline] 250 ml IV ONETIME 11/26/16 14:23 EKG Documentation Completion [RC] STAT Sodium Chloride 0.9% [Normal Saline] 1,000 ml IV ONETIME - Assessment/Plan Last 24 Hours: My Active Orders 11/26/16 11:24 EKG Documentation Completion [RC] STAT Chest 1V Frontal [CR] Stat Head wo Cont [CT] Stat Sodium Chloride 0.9% [Saline Flush] 10 ml FLUSH ASDIRECTED PRN 11/26/16 11:26 CULTURE BLOOD [BC] Stat Blood Culture x2 Reflex Set [OM.PC] Stat Peripheral IV Insertion Adult [OM.PC] Routine 11/26/16 11:27 Accu Check [Blood Glucose Check, Bedside] [RC] ONETIME 11/26/16 11:30 Sodium Chloride 0.9% [Saline Flush] 10 ml FLUSH ASDIRECTED PRN Peripheral IV Insertion Adult [OM.PC] Routine 11/26/16 11:37 RT Aerosol Therapy [RC] ASDIRECTED 11/26/16 11:39 CULTURE BLOOD [BC] Stat 11/26/16 12:05 Velasquez Catheter Insertion [Insert Urinary Catheter] [OM.PC] Q24H 11/26/16 12:39 STOOL CULTURE [MREF] Stat 11/26/16 13:10 Urinary Catheter Assessment [RC] ASDIRECTED 11/26/16 13:14 CULTURE URINE [RM] Stat 11/26/16 13:43 Vancomycin 1,500 mg Sodium Chloride 0.9% [Normal Saline] 250 ml IV ONETIME 11/26/16 14:23 EKG Documentation Completion [RC] STAT Sodium Chloride 0.9% [Normal Saline] 1,000 ml IV ONETIME Assessment:: septic shock secondary to UTI [place] crisis Acute kidney injury Plan: Pt. will be transferred to [facility] in [place]. I spoke with Dr. Arias, one of the hospitalists, who accepts the pt. in transfer. Pt. will be transported via [facility] ground ambulance. Pt. is a code level 1.
[2016-11-26] MEDS ORDERED: Pantoprazole 40 MG Vial IVPUSH ONE (14:43)
[2016-11-26 14:57] VITALS: BP 98/45
== END 2016-11-26 15:05 | disposition short-term general hospital (02) ==
LOC: VM.ED 11:05
DX: A41.9 Sepsis, unspecified organism (principal); R65.21 Severe sepsis with septic shock; N17.9 Acute kidney failure, unspecified; E27.2 Addisonian crisis; N39.0 Urinary tract infection, site not specified; Z88.2 Allergy status to sulfonamides; Z79.82 Long term (current) use of aspirin; Z79.899 Other long term (current) drug therapy
CPT/HCPCS: 36415; 51702; 70450; 71010; 80053; 81001; 82550; 82553; 82962; 83605; 83735; 84100; 84443; 84484; 85025; 85610; 86140; 87040; 87086; 87088; 87186; 87804; 93005; 93010; 94640; 96360; 96361; 96365; 96367; 96375; 99284; 99285; A9270; C9113; J0744; J1720; J2405; J2543; J3370; J7030; J7050

== ENCOUNTER 2016-12-07 12:26 | Observation (INO) | payer MEDICARE, OTHER ==
[2016-12-07] MEDS ORDERED: Sodium Chloride 0.9% 10 ML Syringe FLUSH PRN (13:08)
[2016-12-07] MEDS ORDERED: Acetaminophen 500 MG Tab PO PRN (17:14)
[2016-12-07] MEDS ORDERED: SUMAtriptan 50 MG Tab PO PRN (18:15)
[2016-12-07 18:16] VITALS: BP 136/66
[2016-12-07] MEDS ORDERED: Famotidine 20 MG Tab PO SCH (20:00)
--- NOTE | 2016-12-07 20:42 | PCM.HP ---
H&P History of Present Illness - General Date of Service: 12/07/16 Admit Problem/Dx: Admission Diagnosis/Problem Admission Diagnosis/Problem Chest pain - History of Present Illness Initial Comments - Free Text/Narative: Chief Complaint: Chest pressure and heaviness HPI: She was hospitalized overnight last week in [place], presented to ER with fever, diarrhea, hypotension and confusion. She was thought to be possibly septic so she had blood cultures and was started on 3 antibiotics and transferred to [facility]. She recovered quickly with IV resuscitation, and was decided that her illness was probably related to her Addisons disease, which she has had for 20 years, and gastroenteritis and dehydration. Antibiotics were stopped on discharge the next day. She did have a mild elevation of troponin but EKG was unremarkable, did not have chest pain, and that was felt to be from the hypotension and dehydration. She did get Solu-Medrol IV on admission, was D /Cd on Florinef and prednisone which she has been on for 20 years, see below. She came to clinic today for a F/U visit, and while there C/O of just a couple days of chest pressure and heaviness, usually after meals, not related to exertion. After phone consultation with Cardiology, it was decided to schedule a stress test but also keep her in Hospital this evening for serial troponin measurements. In the office she was given a nitro pill for her chest pain, it cleared immediately and she has had no further recurrence, has been moving about her hospital room without any recurrence and says she has never had chest pressure or heaviness from exertion such as stair climbing etc. Never any Hx of heart disease, never a smoker and has not had hypertension. Her cholesterol has always been quite good, LDL never over 110 in the past 20 years. She was hospitalized in 97 with hypotension and collapse and was found to have both Addisons disease and hypothyroidism at that time, felt to be related and secondary to autoimmune phenomena. She has not required hospitalization for her Addisons disease since then, has been stable on Florinef and prednisone. 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 Systems Review: Constitutional: Has been obese most of her life, BMI varies between 34 and 39, presently 38 Eyes: No cataracts or other problems ENT: Hearing is good, has dentures above, no snoring or sleep apnea Pulmonary: No problems, never a smoker Cardiac: No Hx of exertional chest pain or heart problems, never had hypertension GI: Denies problems, had a colonoscopy 02/12 for positive FOB, negative, told she could have her next one in 15 years! 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 Endocrine: Has Impaired Fasting Glucose (just barely), and the Addisons disease and hypothyroidism, see HPI Heme: Negative, CBC today normal Neurologic: Cluster headaches about annually, usually a group of them lasting up to 2 weeks and usually requiring 1 or more days in the hospital to get them to break Psych: Denies any depression, or any other mood problems or psychiatric problems Allergies: No seasonal allergies or problems Physical Exam: Gen.: VS OK, monitor normal, presently free of chest pain since she got the nitro Eyes: Pupils equal ENT: TMs normal color, upper dentures, tongue and posterior pharynx normal Neck: No thyroid enlargement, jugular venous distention, masses, or bruit Pulmonary: Lung sounds clear Cardiac: Heart sounds normal and regular; no ankle edema; good posterior tibial pulses bilateral Breast exam: Not done Abdomen: No organomegaly, masses, or tenderness Extremities: No ankle edema, skin warm and dry, joints appear normal, hips and knees extend fully Neurologic: Speech, movement, DTRs in knees normal and symmetric Psych: Affect normal; calm and anxious to go home Impression: -Chest pressure and heaviness, not exertional, cleared with one nitro pill -Mild elevation of troponin on recent hospitalization for Addisonian crisis Plan: -Observation in hospital until she can have 2 measurements of troponin 6 hours apart -If both are negative then she can go home, stress test scheduled -At this dictation, second troponin is indeed below detectable limits, she is allowed home, resume primary care from [facility] - Related Data Allergies/Adverse Reactions: Allergies Allergy/AdvReac Type Severity Reaction Status Date / Time Sulfa (Sulfonamide Allergy Severe Hives Verified 12/07/16 13:12 Antibiotics) Home Medications: Home Meds Acetaminophen [Tylenol Extra Strength] 1,000 mg PO Q4H PRN 02/08/15 [History] Cholecalciferol (Vitamin D3) [Vitamin D3] 2,000 units PO BID 02/08/15 [History] Fludrocortisone [Florinef] 0.1 mg PO DAILY 02/08/15 [History] Levothyroxine [Synthroid] 88 mcg PO DAILY 02/08/15 [History] predniSONE 5 mg PO DAILY 02/08/15 [History] Famotidine [Pepcid] 20 mg PO BID 12/07/16 [History] SUMAtriptan Succinate [Imitrex] 100 mg PO ASDIRECTED MDD 2 doses in 24 hours 11/15 [History] Past Medical History HEENT History: Reports: Impaired Vision Gastrointestinal History: Reports: Other (See Below) Other Gastrointestinal History: + [employer] History: Reports: Other OB/BYN History: x4. Musculoskeletal History: Reports: Back Pain, Chronic Neurological History: Reports: Migraines, Other (See Below) Other Neuro History: Hx of Cluster headaches Endocrine/Metabolic History: Reports: Hypothyroidism, Obesity/BMI 30+, Osteopenia, Other (See Below) Other Endocrine/Metabolic History: corticoadrenal insufficiency - Infectious Disease History Infectious Disease History: Reports: Chicken Pox - Past Surgical History HEENT Surgical History: Reports: None GI Surgical History: Reports: Colonoscopy Endocrine Surgical History: Reports: None Neurological Surgical History: Reports: None Musculoskeletal Surgical History: Reports: None Social & Family History - Family History Family Medical History: Noncontributory - Tobacco Use Smoking Status *Q: Never Smoker Used Tobacco, but Quit: No Second Hand Smoke Exposure: Yes - Caffeine Use Caffeine Use: Reports: Coffee, Soda - Recreational Drug Use Recreational Drug Use: No H&P Review of Systems - Review of Systems: Review Of Systems: See Below Exam - Exam Exam: See Below - Vital Signs Vital Signs: Last Vital Signs Temp 36.4 C 12/07/16 18:00 Pulse 70 12/07/16 18:00 Resp 16 12/07/16 18:00 BP 136/66 12/07/16 18:00 Pulse Ox 100 12/07/16 18:00 Weight: 101.877 kg - Patient Data Lab Results Last 24 hrs: Laboratory Results - last 24 hr 12/07/16 12/07/16 Range/Units 13:28 19:47 Troponin I < 0.017 < 0.017 (<=0.056) ng/mL *Q Meaningful Use (ADM) - VTE *Q VTE Criteria *Q: - Stroke *Q Stroke Criteria *Q: - AMI *Q AMI Criteria *Q: Problem List Initiated/Reviewed/Updated: Yes Orders Last 24hrs: Active Orders 24 hr Category Date Time Status Admission Status [Patient Status] [ADT] Routine ADT 12/07/16 12:28 Active Telemetry Monitoring [Cardiac Monitoring] [RC] 06,10,14 Care 12/07/16 13:07 Active ,18,22,02 Regular Diet [DIET] Diet 12/07/16 Dinner Active Acetaminophen [Tylenol Extra Strength] Med 12/07/16 17:14 Active 1,000 mg PO Q4H PRN Cholecalciferol (Vitamin D3) [Vitamin D3] Med 12/08/16 08:00 Active 2,000 units PO BID Famotidine [Pepcid] Med 12/07/16 20:00 Active 20 mg PO BID Fludrocortisone [Florinef] Med 12/08/16 08:00 Active 0.1 mg PO DAILY Levothyroxine [Synthroid] Med 12/08/16 07:00 Active 88 mcg PO ACBREAKFAST SUMAtriptan [Imitrex] Med 12/07/16 18:15 Active 100 mg PO ASDIRECTED PRN Sodium Chloride 0.9% [Saline Flush] Med 12/07/16 13:08 Active 10 ml FLUSH ASDIRECTED PRN predniSONE Med 12/08/16 08:00 Active 5 mg PO DAILY Saline Lock Insert [OM.PC] Routine Oth 12/07/16 13:08 Ordered Code Status [Resuscitation Status] Routine Resus Stat 12/07/16 17:48 Ordered Medication Orders Acetaminophen (Tylenol Extra Strength) 1,000 mg PO Q4H PRN PRN Reason: Pain Cholecalciferol (Vitamin D3) 2,000 units PO BID [facility] Famotidine (Pepcid) 20 mg PO BID [facility] Fludrocortisone Acetate (Florinef) 0.1 mg PO DAILY [facility] Levothyroxine Sodium (Synthroid) 88 mcg PO ACBREAKFAST [facility] Prednisone (Prednisone) 5 mg PO DAILY [facility] Sodium Chloride (Saline Flush) 10 ml FLUSH ASDIRECTED PRN PRN Reason: Keep Vein Open Sumatriptan Succinate (Imitrex) 100 mg PO ASDIRECTED PRN PRN Reason: Headache
--- NOTE | 2016-12-07 20:43 | PCM.DCSUM1 ---
Discharge Summary - Hospital Course Free Text/Narrative:: See H&P, dictated at time of D/C, no changes - Discharge Data Discharge Date: 12/07/16 Discharge Disposition: Home, Self-Care 01 Condition: Good - Discharge Plan Home Medications: Home Meds Acetaminophen [Tylenol Extra Strength] 1,000 mg PO Q4H PRN 02/08/15 [History] Cholecalciferol (Vitamin D3) [Vitamin D3] 2,000 units PO BID 02/08/15 [History] Fludrocortisone [Florinef] 0.1 mg PO DAILY 02/08/15 [History] Levothyroxine [Synthroid] 88 mcg PO DAILY 02/08/15 [History] predniSONE 5 mg PO DAILY 02/08/15 [History] Famotidine [Pepcid] 20 mg PO BID 12/07/16 [History] SUMAtriptan Succinate [Imitrex] 100 mg PO ASDIRECTED MDD 2 doses in 24 hours 11/15 [History] - Patient Data Vitals - Most Recent: Last Vital Signs Temp 36.4 C 12/07/16 18:00 Pulse 70 12/07/16 18:00 Resp 16 12/07/16 18:00 BP 136/66 12/07/16 18:00 Pulse Ox 100 12/07/16 18:00 Weight - Most Recent: 101.877 kg I&O - Last 24 hours: Intake & Output 12/07/16 12/07/16 12/07/16 06:59 14:59 22:59 Intake Total 120 Output Total 200 Balance -80 Lab Results - Last 24 hrs: Laboratory Results - last 24 hr 12/07/16 12/07/16 Range/Units 13:28 19:47 Troponin I < 0.017 < 0.017 (<=0.056) ng/mL Med Orders - Current: Current Medications Acetaminophen (Tylenol Extra Strength) 1,000 mg PO Q4H PRN PRN Reason: Pain Cholecalciferol (Vitamin D3) 2,000 units PO BID [facility] Famotidine (Pepcid) 20 mg PO BID [facility] Fludrocortisone Acetate (Florinef) 0.1 mg PO DAILY [facility] Levothyroxine Sodium (Synthroid) 88 mcg PO ACBREAKFAST [facility] Prednisone (Prednisone) 5 mg PO DAILY [facility] Sodium Chloride (Saline Flush) 10 ml FLUSH ASDIRECTED PRN PRN Reason: Keep Vein Open Sumatriptan Succinate (Imitrex) 100 mg PO ASDIRECTED PRN PRN Reason: Headache *Q Meaningful Use (DIS) - VTE *Q VTE Criteria *Q: - Stroke *Q Stroke Criteria *Q: - AMI *Q AMI Criteria *Q:
[2016-12-08] MEDS ORDERED: Levothyroxine 88 MCG Tab PO SCH (07:00)
[2016-12-08] MEDS ORDERED: predniSONE 5 MG Tab PO SCH (08:00)
[2016-12-08] MEDS ORDERED: Fludrocortisone 0.1 MG Tab PO SCH (08:00)
[2016-12-08] MEDS ORDERED: Cholecalciferol (Vitamin D3) 1,000 Unit Tab PO SCH (08:00)
== END 2016-12-07 21:15 | disposition home or self-care (01) ==
LOC: VM.MS 12:37
PROVIDERS: ADMIT Physician Assistant; ATTEND Family Medicine
DX: R07.89 Other chest pain (principal); R79.89 Other specified abnormal findings of blood chemistry; Z88.2 Allergy status to sulfonamides; Z79.899 Other long term (current) drug therapy; E03.9 Hypothyroidism, unspecified; E66.9 Obesity, unspecified; Z68.30 Body mass index [BMI] 30.0-30.9, adult; Z98.890 Other specified postprocedural states
CPT/HCPCS: 36415; 84484; G0378

== ENCOUNTER 2024-06-15 15:54 | Emergency (ER) | payer MEDICARE, OTHER ==
[2024-06-15 16:17] LABS: BASOPHILS PERCENT AUTO 0.2 % (0.2-1.2); EOSINOPHILS ABSOLUTE AUTO 0.3 x10^3/uL (0.0-0.5); EOSINOPHILS PERCENT AUTO 1.5 % (0.0-4.0); HEMATOCRIT 41.7 % (33.0-47.0); HEMOGLOBIN 14.1 g/dL (12.0-16.0); IMMATURE GRAN ABSOLUTE AUTO 0.03 x10^3/uL (0.00-0.07); LYMPHOCYTES ABSOLUTE AUTO 3.6 x10^3/uL (1.0-4.8); MEAN CORPUSCULAR HEMOGLOBIN 31.8 pg (26.0-32.0); MEAN CORPUSCULAR HGB CONC 33.8 g/dL (32.0-36.0); MEAN CORPUSCULAR VOLUME 94.1 fL (78.0-93.0); MONOCYTES ABSOLUTE AUTO 1.2 x10^3/uL (0.0-0.8); MONOCYTES PERCENT AUTO 6.5 % (2.0-11.0); NEUTROPHILS ABSOLUTE AUTO 12.7 x10^3/uL (1.8-7.7); NEUTROPHILS PERCENT AUTO 71.6 % (50.0-80.0); PLATELET COUNT,PLT 197 x10^3/uL (130-400); RED BLOOD CELL COUNT 4.43 x10^6/uL (4.00-5.50)
[2024-06-15] MEDS: Ondansetron 4 MG/2 ML SDV IVPUSH ONE (16:18)
[2024-06-15] MEDS: Sodium Chloride 0.9% 1,000 ML IV ONE (16:18)
[2024-06-15 16:34] LABS: WHITE BLOOD CELL COUNT,WBC 17.8 x10^3/uL (4.0-10.0)
[2024-06-15 16:39] LABS: A/G RATIO 0.86; ALANINE AMINOTRANSFERASE,ALT 24 U/L (14-59); ALBUMIN 3.2 g/dL (3.4-5.0); ALKALINE PHOSPHATASE 82 U/L (46-116); ANION GAP 15.1 mmol/L (5-15); ASPARTATE AMNIOTRANSFERASE,AST 22 U/L (15-37); BLOOD UREA NITROGEN,BUN 11 mg/dL (7-18); CALCIUM 8.8 mg/dL (8.5-10.1); CARBON DIOXIDE,CO2 29 mmol/L (21-32); CHLORIDE,CL 100 mmol/L (98-107); GLUCOSE RANDOM 148 mg/dL (70-99); MAGNESIUM 1.3 mg/dL (1.8-2.4); POTASSIUM,K 3.1 mmol/L (3.5-5.1); PROTEIN TOTAL,TP 6.9 g/dL (6.4-8.2); SODIUM,NA 141 mmol/L (136-145)
[2024-06-15 16:40] LABS: ESTIMATED GFR 59 mL/min (>=60)
[2024-06-15] MEDS: cefTRIAXone 2 GM Vial IVPUSH ONE (16:41)
[2024-06-15] MEDS: Potassium Chloride 20 MEQ Tab.ER PO ONE (17:05)
[2024-06-15 17:08] VITALS: BP 123/49; PULSE 93
[2024-06-15 17:19] LABS: APPEARANCE,URINE CLOUDY (CLEAR); BILIRUBIN,URINE SMALL (NEGATIVE); COLOR,URINE YELLOW (YELLOW); GLUCOSE,URINE NEGATIVE (NEGATIVE); KETONES,URINE 15 mg/dL (NEGATIVE); LEUKOCYTE ESTERASE,URINE SMALL (NEGATIVE); NITRITE,URINE POSITIVE (NEGATIVE); OCCULT BLOOD,URINE SMALL (NEGATIVE); PROTEIN,URINE 30 mg/dL (NEGATIVE)
[2024-06-15 17:27] LABS: BACTERIA,URINE MANY /HPF (NOT SEEN); HYALINE CASTS,URINE FEW; MUCUS,URINE MODERATE /LPF (NOT SEEN); SQUAMOUS EPITHELIAL CELLS,UR MODERATE /HPF (NOT SEEN); WBC,URINE 20-30 /HPF (NOT SEEN)
[2024-06-15 17:28] LABS: WBC CASTS,URINE FEW /HPF (NOT SEEN)
== END 2024-06-15 17:38 | disposition home or self-care (01) ==
LOC: VM.ED 15:54
DX: N39.0 Urinary tract infection, site not specified (principal); E87.6 Hypokalemia; R31.9 Hematuria, unspecified; E66.9 Obesity, unspecified; Z88.2 Allergy status to sulfonamides; Z79.82 Long term (current) use of aspirin; Z79.84 Long term (current) use of oral hypoglycemic drugs; Z79.890 Hormone replacement therapy; Z79.899 Other long term (current) drug therapy; Z68.39 Body mass index [BMI] 39.0-39.9, adult
CPT/HCPCS: 36415; 80053; 81001; 83605; 83735; 85025; 87086; 87088; 87186; 96361; 96374; 96375; 99284; A9270; J0696; J2405; J7030

== ENCOUNTER 2024-06-17 10:27 | Emergency (ER) | payer MEDICARE, OTHER ==
[2024-06-17] MEDS ORDERED: Sodium Chloride 0.9% 10 ML Syringe FLUSH PRN (10:50)
[2024-06-17 11:00] LABS: BASOPHILS PERCENT AUTO 0.2 % (0.2-1.2); EOSINOPHILS ABSOLUTE AUTO 0.4 x10^3/uL (0.0-0.5); EOSINOPHILS PERCENT AUTO 2.5 % (0.0-4.0); HEMATOCRIT 42.6 % (33.0-47.0); IMMATURE GRAN ABSOLUTE AUTO 0.03 x10^3/uL (0.00-0.07); LYMPHOCYTES ABSOLUTE AUTO 1.7 x10^3/uL (1.0-4.8); LYMPHOCYTES PERCENT AUTO 9.9 % (25.0-50.0); MEAN CORPUSCULAR HEMOGLOBIN 31.3 pg (26.0-32.0); MEAN CORPUSCULAR HGB CONC 32.9 g/dL (32.0-36.0); MEAN CORPUSCULAR VOLUME 95.3 fL (78.0-93.0); MONOCYTES ABSOLUTE AUTO 0.7 x10^3/uL (0.0-0.8); MONOCYTES PERCENT AUTO 4.4 % (2.0-11.0); NEUTROPHILS ABSOLUTE AUTO 13.9 x10^3/uL (1.8-7.7); NEUTROPHILS PERCENT AUTO 82.8 % (50.0-80.0); PLATELET COUNT,PLT 207 x10^3/uL (130-400); RED BLOOD CELL COUNT 4.47 x10^6/uL (4.00-5.50); WHITE BLOOD CELL COUNT,WBC 16.8 x10^3/uL (4.0-10.0)
[2024-06-17] MEDS: Lactated Ringers 1,000 ML IV ONE (11:00)
[2024-06-17] MEDS: fentaNYL 50 MCG/ML SDV IVPUSH ONE (11:00)
[2024-06-17] MEDS: Acetaminophen 325 MG Tab PO ONE (11:00)
[2024-06-17] MEDS: Ondansetron 4 MG/2 ML SDV IVPUSH ONE (11:09)
[2024-06-17] MEDS: Hydrocortisone Sodium Succinate 100 MG/2 ML SDV IVPUSH ONE (11:17)
[2024-06-17 11:23] LABS: A/G RATIO 0.69; ALANINE AMINOTRANSFERASE,ALT 34 U/L (14-59); ALBUMIN 2.9 g/dL (3.4-5.0); ALKALINE PHOSPHATASE 99 U/L (46-116); ASPARTATE AMNIOTRANSFERASE,AST 31 U/L (15-37); BILIRUBIN TOTAL 0.9 mg/dL (0.2-1.0); BLOOD UREA NITROGEN,BUN 8 mg/dL (7-18); CALCIUM 9.2 mg/dL (8.5-10.1); CARBON DIOXIDE,CO2 27 mmol/L (21-32); CHLORIDE,CL 98 mmol/L (98-107); CREATININE 1.2 mg/dL (0.55-1.02); GLUCOSE RANDOM 127 mg/dL (70-99); LIPASE 67 U/L (19-71); MAGNESIUM 1.2 mg/dL (1.8-2.4); POTASSIUM,K 3.4 mmol/L (3.5-5.1); PROTEIN TOTAL,TP 7.1 g/dL (6.4-8.2); SODIUM,NA 138 mmol/L (136-145)
[2024-06-17 11:28] LABS: ANION GAP 16.4 mmol/L (5-15); ESTIMATED GFR 48 mL/min (>=60)
[2024-06-17 11:29] LABS: LACTIC ACID 2.4 mmol/L (0.4-2.0)
[2024-06-17 11:36] LABS: C-REACTIVE PROTEIN 28.22 mg/dL (<=0.50)
[2024-06-17] MEDS: Azithromycin 500 MG in Sodium Chloride 0.9% 250 ML IV ONE (11:46)
[2024-06-17] MEDS: cefTRIAXone 2 GM Vial IVPUSH ONE (11:46)
[2024-06-17] MEDS: Magnesium Sulf/Wat 4 GM/100 mL 4 GM in Premix Bag 1 BAG IV ONE (12:15)
[2024-06-17] MEDS: Sodium Chloride 0.9% 500 ML IV ONE (12:16)
[2024-06-17] MEDS: Potassium Chloride 20 MEQ Tab.ER PO ONE (12:16)
[2024-06-17] MEDS: Sodium Chloride 0.9% 1,000 ML IV ONE (13:11)
[2024-06-17] MEDS: Norepinephrine Bit/D5W Premix 250 ML IV SCH (13:46)
[2024-06-17 15:19] VITALS: BP 119/50; PULSE 75
[2024-06-17] MEDS: Ketorolac 15 MG/ML SDV IVPUSH ONE (15:22)
== END 2024-06-17 14:14 | disposition short-term general hospital (02) ==
LOC: VM.ED 10:27
DX: A41.9 Sepsis, unspecified organism (principal); R65.21 Severe sepsis with septic shock; J84.9 Interstitial pulmonary disease, unspecified; N39.0 Urinary tract infection, site not specified; E27.2 Addisonian crisis; I10 Essential (primary) hypertension; E78.00 Pure hypercholesterolemia, unspecified; E11.9 Type 2 diabetes mellitus without complications; E03.9 Hypothyroidism, unspecified; E66.9 Obesity, unspecified; Z68.37 Body mass index [BMI] 37.0-37.9, adult; K21.9 Gastro-esophageal reflux disease without esophagitis; Z79.899 Other long term (current) drug therapy; Z79.82 Long term (current) use of aspirin; Z79.890 Hormone replacement therapy; Z79.84 Long term (current) use of oral hypoglycemic drugs; Z88.2 Allergy status to sulfonamides
CPT/HCPCS: 36415; 71045; 74176; 80053; 82024; 82533; 83605; 83690; 83735; 83880; 85025; 86140; 87040; 96361; 96365; 96366; 96367; 96375; 99284; 99285-25; A9270-GY; J0456; J0696; J1720; J2405; J3010; J3475; J7030; J7120

== ENCOUNTER 2024-07-04 11:32 | Inpatient (IN) | payer MEDICARE, OTHER ==
[2024-07-04 11:56] LABS: BASOPHILS PERCENT AUTO 0.2 % (0.2-1.2); EOSINOPHILS ABSOLUTE AUTO 0.2 x10^3/uL (0.0-0.5); HEMATOCRIT 41.9 % (33.0-47.0); HEMOGLOBIN 13.7 g/dL (12.0-16.0); IMMATURE GRAN ABSOLUTE AUTO 0.04 x10^3/uL (0.00-0.07); LYMPHOCYTES ABSOLUTE AUTO 1.6 x10^3/uL (1.0-4.8); LYMPHOCYTES PERCENT AUTO 8.5 % (25.0-50.0); MEAN CORPUSCULAR HEMOGLOBIN 30.8 pg (26.0-32.0); MEAN CORPUSCULAR HGB CONC 32.7 g/dL (32.0-36.0); MEAN CORPUSCULAR VOLUME 94.2 fL (78.0-93.0); MONOCYTES ABSOLUTE AUTO 0.8 x10^3/uL (0.0-0.8); MONOCYTES PERCENT AUTO 4.1 % (2.0-11.0); NEUTROPHILS ABSOLUTE AUTO 16.6 x10^3/uL (1.8-7.7); PLATELET COUNT,PLT 255 x10^3/uL (130-400); RED BLOOD CELL COUNT 4.45 x10^6/uL (4.00-5.50)
[2024-07-04] MEDS: Lactated Ringers 1,000 ML IV SCH ×3 (11:59→15:59)
[2024-07-04 12:09] LABS: WHITE BLOOD CELL COUNT,WBC 19.3 x10^3/uL (4.0-10.0)
[2024-07-04 12:16] LABS: A/G RATIO 1.03; ALANINE AMINOTRANSFERASE,ALT 30 U/L (14-59); ALBUMIN 3.5 g/dL (3.4-5.0); ALKALINE PHOSPHATASE 74 U/L (46-116); ASPARTATE AMNIOTRANSFERASE,AST 24 U/L (15-37); BILIRUBIN TOTAL 1.5 mg/dL (0.2-1.0); BLOOD UREA NITROGEN,BUN 18 mg/dL (7-18); CALCIUM 9.1 mg/dL (8.5-10.1); CARBON DIOXIDE,CO2 29 mmol/L (21-32); CHLORIDE,CL 100 mmol/L (98-107); CREATININE 1.1 mg/dL (0.55-1.02); GLUCOSE RANDOM 164 mg/dL (70-99); LIPASE 77 U/L (19-71); MAGNESIUM 1.3 mg/dL (1.8-2.4); POTASSIUM,K 3.3 mmol/L (3.5-5.1); PROTEIN TOTAL,TP 6.9 g/dL (6.4-8.2); SODIUM,NA 141 mmol/L (136-145)
[2024-07-04 12:20] LABS: ANION GAP 15.3 mmol/L (5-15); ESTIMATED GFR 53 mL/min (>=60)
[2024-07-04] MEDS: Piperacillin/Tazobactam 4.5 GM in Sodium Chloride 0.9% 100 ML IV ONE (12:24)
[2024-07-04 14:29] LABS: APPEARANCE,URINE CLEAR (CLEAR); BILIRUBIN,URINE NEGATIVE (NEGATIVE); COLOR,URINE YELLOW (YELLOW); GLUCOSE,URINE NEGATIVE (NEGATIVE); KETONES,URINE NEGATIVE (NEGATIVE); LEUKOCYTE ESTERASE,URINE TRACE (NEGATIVE); NITRITE,URINE NEGATIVE (NEGATIVE); OCCULT BLOOD,URINE NEGATIVE (NEGATIVE); PROTEIN,URINE NEGATIVE (NEGATIVE); UROBILINOGEN,URINE 0.2 EU/dL (0.2)
[2024-07-04 14:41] LABS: BACTERIA,URINE FEW /HPF (NOT SEEN); HYALINE CASTS,URINE RARE; RBC,URINE 0-5 /HPF (NOT SEEN); SQUAMOUS EPITHELIAL CELLS,UR MANY /HPF (NOT SEEN)
[2024-07-04] MEDS ORDERED: Ibuprofen 200 MG Tab PO PRN (16:29)
[2024-07-04] MEDS ORDERED: Albuterol/Ipratropium 3.0-0.5 MG/3 ML Neb Soln NEB PRN (16:29)
[2024-07-04] MEDS ORDERED: Albuterol 0.083% 2.5 MG/3 ML Neb Soln NEB PRN (16:29)
[2024-07-04] MEDS ORDERED: Acetaminophen 500 MG Tab PO PRN (16:35)
[2024-07-04] MEDS ORDERED: Benzonatate 100 MG Cap PO PRN (16:35)
[2024-07-04] MEDS ORDERED: Loperamide 2 MG Cap PO PRN (16:46)
[2024-07-04] MEDS: Ondansetron 4 MG Tab.DIS PO PRN (17:35)
[2024-07-04] MEDS: Sodium Chloride 0.9% 1,000 ML IV SCH (17:36)
[2024-07-04] MEDS: Potassium Chloride 20 MEQ Tab.ER PO SCH (18:17)
[2024-07-04] MEDS: Magnesium Chloride 64 MG Tab.ER PO SCH (18:17)
[2024-07-04] MEDS: atorvaSTATin 10 MG Tab PO SCH (20:24)
[2024-07-04] MEDS: Acetaminophen 325 MG Tab PO PRN (20:27)
[2024-07-04] MEDS: Hydrocortisone Sodium Succinate 100 MG/2 ML SDV IVPUSH ONE (21:25)
[2024-07-04] MEDS: Magnesium Sulfate 2 GM/50 mL 2 GM in Premix Bag 1 BAG IV ONE (21:28)
[2024-07-05] MEDS: Hydrocortisone Sodium Succinate 100 MG/2 ML SDV IVPUSH SCH (03:32)
[2024-07-05 07:01] LABS: BASOPHILS PERCENT AUTO 0.1 % (0.2-1.2); EOSINOPHILS PERCENT AUTO 0.1 % (0.0-4.0); HEMATOCRIT 37.9 % (33.0-47.0); HEMOGLOBIN 12.3 g/dL (12.0-16.0); IMMATURE GRAN ABSOLUTE AUTO 0.01 x10^3/uL (0.00-0.07); LYMPHOCYTES ABSOLUTE AUTO 0.7 x10^3/uL (1.0-4.8); LYMPHOCYTES PERCENT AUTO 7.2 % (25.0-50.0); MEAN CORPUSCULAR HEMOGLOBIN 31.1 pg (26.0-32.0); MEAN CORPUSCULAR HGB CONC 32.5 g/dL (32.0-36.0); MEAN CORPUSCULAR VOLUME 95.9 fL (78.0-93.0); MONOCYTES PERCENT AUTO 0.4 % (2.0-11.0); NEUTROPHILS ABSOLUTE AUTO 8.6 x10^3/uL (1.8-7.7); NEUTROPHILS PERCENT AUTO 92.1 % (50.0-80.0); PLATELET COUNT,PLT 203 x10^3/uL (130-400); RED BLOOD CELL COUNT 3.95 x10^6/uL (4.00-5.50); WHITE BLOOD CELL COUNT,WBC 9.4 x10^3/uL (4.0-10.0)
[2024-07-05 07:31] LABS: A/G RATIO 0.88; ALBUMIN 2.8 g/dL (3.4-5.0); BILIRUBIN TOTAL 0.6 mg/dL (0.2-1.0); C-REACTIVE PROTEIN 11.03 mg/dL (<=0.50); CALCIUM 8.5 mg/dL (8.5-10.1); CREATININE 0.7 mg/dL (0.55-1.02); EST CRCL DRUG DOSING (CG) 64.41 mL/min; MAGNESIUM 1.8 mg/dL (1.8-2.4); POTASSIUM,K 4.2 mmol/L (3.5-5.1)
[2024-07-05 07:36] LABS: ANION GAP 12.2 mmol/L (5-15)
[2024-07-05] MEDS: Levothyroxine 88 MCG Tab PO SCH (08:31)
[2024-07-05] MEDS: Pantoprazole 40 MG Tab.CR PO SCH (08:31)
[2024-07-05] MEDS: Losartan 50 MG Tab PO SCH (08:31)
[2024-07-05] MEDS: Fludrocortisone 0.1 MG Tab PO SCH (08:32)
[2024-07-05] MEDS: Enoxaparin 40 MG/0.4 ML Syringe SUBCUT SCH (08:32)
[2024-07-05] MEDS: Hydrochlorothiazide 12.5 MG Cap PO SCH (08:33)
[2024-07-05] MEDS ORDERED: predniSONE 5 MG Tab PO SCH (09:00)
[2024-07-05] MEDS: metFORMIN 500 MG Tab PO SCH (14:49)
[2024-07-05] MEDS: Hydrocortisone 20 MG Tab PO ONE (16:39)
[2024-07-05] MEDS ORDERED: Hydrocortisone 20 MG Tab PO SCH (18:00)
[2024-07-06 07:03] LABS: BASOPHILS PERCENT AUTO 0.1 % (0.2-1.2); EOSINOPHILS ABSOLUTE AUTO 0.2 x10^3/uL (0.0-0.5); EOSINOPHILS PERCENT AUTO 2.3 % (0.0-4.0); HEMATOCRIT 34.1 % (33.0-47.0); HEMOGLOBIN 11.1 g/dL (12.0-16.0); IMMATURE GRAN ABSOLUTE AUTO 0.01 x10^3/uL (0.00-0.07); LYMPHOCYTES ABSOLUTE AUTO 2.1 x10^3/uL (1.0-4.8); LYMPHOCYTES PERCENT AUTO 28.4 % (25.0-50.0); MEAN CORPUSCULAR HEMOGLOBIN 31.4 pg (26.0-32.0); MEAN CORPUSCULAR HGB CONC 32.6 g/dL (32.0-36.0); MEAN CORPUSCULAR VOLUME 96.3 fL (78.0-93.0); MONOCYTES ABSOLUTE AUTO 0.4 x10^3/uL (0.0-0.8); NEUTROPHILS ABSOLUTE AUTO 4.8 x10^3/uL (1.8-7.7); NEUTROPHILS PERCENT AUTO 64.1 % (50.0-80.0); PLATELET COUNT,PLT 187 x10^3/uL (130-400); RED BLOOD CELL COUNT 3.54 x10^6/uL (4.00-5.50); WHITE BLOOD CELL COUNT,WBC 7.5 x10^3/uL (4.0-10.0)
[2024-07-06 07:27] LABS: A/G RATIO 0.86; ALBUMIN 2.5 g/dL (3.4-5.0); BILIRUBIN TOTAL 0.3 mg/dL (0.2-1.0); CALCIUM 8.7 mg/dL (8.5-10.1); CREATININE 0.7 mg/dL (0.55-1.02); EST CRCL DRUG DOSING (CG) 64.41 mL/min; POTASSIUM,K 3.5 mmol/L (3.5-5.1); PROTEIN TOTAL,TP 5.4 g/dL (6.4-8.2)
[2024-07-06 07:38] LABS: ANION GAP 8.5 mmol/L (5-15)
[2024-07-06] MEDS: predniSONE 10 MG Tab PO SCH (08:47)
[2024-07-06] MEDS: Losartan 25 MG Tab PO SCH (08:47)
[2024-07-06] MEDS: Fludrocortisone 0.1 MG Tab PO SCH (08:48)
[2024-07-06] MEDS: Iopamidol 755 Mg/ML 100 ML Bottle IVPUSH ONE (11:04)
[2024-07-06 13:54] VITALS: BP 133/67; PULSE 80
[2024-07-07 09:07] LABS: ACTH 8.3 pg/mL (7.2-63.3)
== END 2024-07-06 14:00 | disposition home or self-care (01) | DRG 643 ==
LOC: VM.ED 11:32 → VM.MS 15:04
PROVIDERS: ADMIT Nurse Practitioner Family; ATTEND Nurse Practitioner Family
DX: E27.1 Primary adrenocortical insufficiency (principal); A41.9 Sepsis, unspecified organism; I50.32 Chronic diastolic (congestive) heart failure; I10 Essential (primary) hypertension; H54.7 Unspecified visual loss; E11.9 Type 2 diabetes mellitus without complications; E66.9 Obesity, unspecified; Z68.37 Body mass index [BMI] 37.0-37.9, adult; E78.00 Pure hypercholesterolemia, unspecified; I48.0 Paroxysmal atrial fibrillation; K21.9 Gastro-esophageal reflux disease without esophagitis; Z79.890 Hormone replacement therapy; M54.9 Dorsalgia, unspecified; G89.29 Other chronic pain; G43.909 Migraine, unspecified, not intractable, without status migrainosus; E03.9 Hypothyroidism, unspecified; M85.80 Other specified disorders of bone density and structure, unspecified site; I95.9 Hypotension, unspecified; I11.0 Hypertensive heart disease with heart failure; E83.42 Hypomagnesemia; E87.6 Hypokalemia; E11.65 Type 2 diabetes mellitus with hyperglycemia; Z79.899 Other long term (current) drug therapy; Z79.52 Long term (current) use of systemic steroids; Z79.82 Long term (current) use of aspirin; Z79.84 Long term (current) use of oral hypoglycemic drugs; Z88.2 Allergy status to sulfonamides
CPT/HCPCS: 36415; 71045; 71046; 71275; 80053; 81001; 82024; 82533; 82947; 83605; 83690; 83735; 83880; 84443; 84484; 85025; 85379; 86140; 87040; 87493; 93005; 94668; 96361; 96365; 97161-GP; 99284; 99285-25; A9270-GY; J1650; J1720; J2543; J3475; J7030; J7120; J7512; Q9967